=== PATIENT | female | born 1945 | race Caucasian/White ===

== ENCOUNTER → 2017-12-22 | Outpatient (CLI) | payer MEDICARE, OTHER ==
[~2017-12-22] MED LIST: AMLO10 PO; AMOCLA875 PO; ASCO500 PO; ASPI81CH PO; ATOR20 PO; Augmentin 875-1 EACH PO; CHOL10002; CLOP75 PO; CONEST.625 PO; GLUCHON PO; GLUCOS PO; HYDACE5 PO; HYDROCODON-ACE1 EAC3 PO; HYOMAX PO; LOSARTAN PO; MESA400ER PO; METO25ER PO; MONT10T PO; MULVITMIND PO; OMEP20ER PO; Percocet 5-3251 EACH PO; Qualaquin324 MG PO; VITAMIN D PO; XYZAL5 MG PO; [UNRECOGNIZED DRUG - OTHER] PO; [UNRECOGNIZED DRUG - OTHER] PO
[2017-12-22 18:42] LABS: Influenza A Negative (NEGATIVE); Influenza B Negative (NEGATIVE)
== END ==
LOC: LAB 18:10
PROVIDERS: Internal Medicine
DX: R50.9 Fever, unspecified (principal); R68.83 Chills (without fever); R52 Pain, unspecified
CPT/HCPCS: 87804

== ENCOUNTER 2018-01-13 01:55 | Emergency (ER) | payer MEDICARE, OTHER ==
[~2018-01-13] VITALS: Ht 157.5 cm; Wt 86.2 kg
[2018-01-13 02:32] LABS: BASOPHILS ABSOLUTE AUTO 0.06 K/mm3 (0.00-0.23); BASOPHILS PERCENT AUTO 1 % (0-2); EOSINOPHILS ABSOLUTE AUTO 0.48 K/mm3 (0.00-0.68); EOSINOPHILS PERCENT AUTO 7 % (0-6); Hematocrit 36.4 % (33.0-51.0); Hemoglobin 12.1 g/dL (11.5-16.0); IMMATURE GRAN ABSOLUTE AUTO 0.05 K/mm3 (0.00-0.10); IMMATURE GRAN PERCENT AUTO 1 % (0-1); LYMPHOCYTES ABSOLUTE AUTO 2.22 K/mm3 (0.84-5.20); LYMPHOCYTES PERCENT AUTO 31 % (21-46); MONOCYTES PERCENT AUTO 7 % (4-13); Mean Corpuscular HGB 32.3 pg (26.0-34.0); Mean Corpuscular HGB Conc 33.2 g/dL (31.5-36.5); Mean Corpuscular Volume 97 fL (80-100); Mean Platelet Volume 9.4 fL (9.1-12.4); NEUTROPHILS ABSOLUTE AUTO 3.84 K/mm3 (1.96-9.15); NEUTROPHILS PERCENT AUTO 54 % (41-73); Platelet Count 271 K/mm3 (150-400); RDW Coefficient Variation 12.8 % (11.7-14.2); RDW Standard Deviation 45.1 fL (35.1-46.3); Red Blood Cell Count 3.75 M/mm3 (3.80-5.20); White Blood Cell Count 7.15 K/mm3 (4.00-11.30)
[2018-01-13 02:47] LABS: Alanine Aminotransfer (ALT/SGP 23 U/L (12-78); Albumin, Blood 3.4 g/dL (3.4-5.0); Albumin/Globulin Ratio 0.8 (0.8-1.8); Alk Phos 66 U/L (50-136); Anion Gap 9 mmol/L (6-16); Aspartate Aminotrans (AST/SGOT 13 U/L (12-37); Bilirubin, Total 0.5 mg/dL (0.1-1.0); Blood Urea Nitrogen 22 mg/dL (8-24); Bun/Creatinine Ratio 25.4 (12.0-20.0); CO2, Blood 28 mmol/L (21-32); Calcium, Blood 8.9 mg/dL (8.5-10.1); Chloride, Blood 98 mmol/L (98-108); Creatinine, Blood 0.87 mg/dL (0.40-1.00); Glomerular Filtration Rate >60 (60-); Glucose, Blood 90 mg/dL (70-99); Potassium, Blood 3.2 mmol/L (3.5-5.5); Sodium, Blood 135 mmol/L (136-145); Total Protein, Blood 7.4 g/dL (6.4-8.2); Troponin I <0.015 ng/mL (0.000-0.040)
== END 2018-01-13 05:58 | disposition home or self-care (01) ==
LOC: ER 01:55
PROVIDERS: Emergency Medicine
DX: R07.9 Chest pain, unspecified (principal); Z88.2 Allergy status to sulfonamides; Z88.8 Allergy status to other drugs, medicaments and biological substances; Z88.1 Allergy status to other antibiotic agents; Z88.5 Allergy status to narcotic agent; Z79.899 Other long term (current) drug therapy; Z79.891 Long term (current) use of opiate analgesic; Z79.82 Long term (current) use of aspirin; Z87.891 Personal history of nicotine dependence
CPT/HCPCS: 36415; 71046; 80053; 83690; 83880; 84484; 85025; 93005; 93010; 99284

== ENCOUNTER → 2018-11-25 | Outpatient (CLI) | payer MEDICARE, OTHER | END | disposition home or self-care (01) | LOC: PLD 12:37 → LAB SHORT 12:37 | DX: D22.62 Melanocytic nevi of left upper limb, including shoulder (principal) | CPT/HCPCS: 88305 ==

== ENCOUNTER 2021-02-28 06:19 | Day surgery (SDC) | payer MEDICARE, OTHER ==
[~2021-02-28] VITALS: Ht 160 cm; Wt 86.5 kg
[~2021-02-28 06:19] MED LIST changes: +ALLER-EASE180 MG PO; +AMLO5 PO; +ASACOL HD800 MG PO; +BENADRYL25 MG PO; +Entocort EC 3 mg3 MG PO; +Glucosamine-Ch1 EACH PO; +HYDR1TAB94; +HYDR1TAB94 PO; +KRILL OIL 5001 EAC1 PO; +LO-DOSE ASPIRIN81 MG PO; +LOSARTAN-HCTZ1 EAC1 PO; +METO50ER PO; +Nitrostat0.4 MG SL; +ONE DAILY COMP1 EACH PO; +Omeprazole20 M1 PO; +POTA8 PO; +PRAV20 PO; +PRED10 PO; +VITAMIN B122500 MCG PO; +VITAMIN D32000 UNIT PO
[2021-02-28] MEDS ORDERED: PANT20 (07:04)
--- NOTE | 2021-02-28 07:07 | NUR ---
02/28/21 0707 Ignacio Tubbs 0641 TETRACAINE ONE DROP GIVEN. AT 0700 PLAGET PLACED. PT TOLERATING PLAGET WELL. CALL LIGHT WITHIN REACH
== END 2021-02-28 08:25 | disposition home or self-care (01) ==
LOC: ORSCSDS 06:19
PROVIDERS: Ophthalmology
PROC: 08RK3JZ Replacement of Left Lens with Synthetic Substitute, Percutaneous Approach (ICD-10-PCS; principal; 2021-02-28 07:30)
DX: H25.12 Age-related nuclear cataract, left eye (principal); I10 Essential (primary) hypertension; E78.5 Hyperlipidemia, unspecified; Z79.899 Other long term (current) drug therapy; Z79.82 Long term (current) use of aspirin; K21.9 Gastro-esophageal reflux disease without esophagitis
CPT/HCPCS: A9270; J2001; J2250; J3010; J3301; J7040; V2632

== ENCOUNTER 2021-08-23 08:23 | Day surgery (SDC) | payer MEDICARE, OTHER ==
[~2021-08-23] VITALS: Ht 160 cm; Wt 89.0 kg
[~2021-08-23 08:23] MED LIST changes: +CETI5 PO; +FAMO20 PO; +HYDROCODONE-AC1 EAC7 PO; +PANT20; +UBID100 PO
[2021-08-23] MEDS ORDERED: Vitamin B-121000 MCG PO (09:08)
[2021-08-23] MEDS ORDERED: ASACOL HD800 MG PO (09:11)
--- NOTE | 2021-08-23 09:49 | NUR ---
HERE TO DISCUSS PROCEDURE WITH PATIENT.
[2021-08-23] MEDS ORDERED: Plavix75 MG PO (10:13)
--- NOTE | 2021-08-23 10:15 | NUR ---
[facility] CALLED TO [facility]. IV REMOVED INTACT. 2X2, COB[place] ANDM MANUAL PRESSURE HELD. DRESSING FOR DISCHARGE.
--- NOTE | 2021-08-23 10:33 | NUR ---
DISCHARGED HOME. FRIEND DRIVING. AMBULATED TO PARKING LOT.
== END 2021-08-23 10:47 | disposition home or self-care (01) ==
LOC: MHTC 08:23
DX: I25.118 Atherosclerotic heart disease of native coronary artery with other forms of angina pectoris (principal); Z53.8 Procedure and treatment not carried out for other reasons; I10 Essential (primary) hypertension; E78.5 Hyperlipidemia, unspecified; J43.9 Emphysema, unspecified; Z95.5 Presence of coronary angioplasty implant and graft; Z87.891 Personal history of nicotine dependence; Z79.899 Other long term (current) drug therapy; Z79.82 Long term (current) use of aspirin; Z88.1 Allergy status to other antibiotic agents; Z88.2 Allergy status to sulfonamides; Z88.5 Allergy status to narcotic agent; Z88.8 Allergy status to other drugs, medicaments and biological substances
CPT/HCPCS: J1644; J2250; J3010; J7030; J7050

== ENCOUNTER 2021-09-19 08:40 | Inpatient (IN) | payer MEDICARE, OTHER ==
[~2021-09-19] VITALS: Ht 160 cm; Wt 88.0 kg
[~2021-09-19 08:40] MED LIST changes: +ASPIR 8181 M1 PO; -LO-DOSE ASPIRIN81 MG PO; -LOSARTAN-HCTZ1 EAC1 PO; +LOSARTAN-HCTZ1 EAC5 PO; +Plavix75 MG PO; +Vitamin B-121000 MCG PO
[2021-09-19] MEDS ORDERED: CLOPIDOGREL75 MG PO (09:21)
[2021-09-19] MEDS ORDERED: Isosorbide Mono30 MG PO (11:20)
--- NOTE | 2021-09-19 12:40 | NUR ---
TO RECOVERY ROOM VIA RECLINER. PT RIGHT HAND IS BLUE. TR BAND X2. 2 CC AIR REMOVED ON RADIAL ACCESS. HAND STILL BLUE.AT 1250 RADIAL TR BAND REMOVED, MANUAL PRESSURE HELD. . HAND IS PINKER.
--- NOTE | 2021-09-19 13:05 | NUR ---
MANUAL PRESSURE RELEASED RIGHT RADIAL. CLOTH DOT APPLIED. NO BLEEDING AT SITE.
--- NOTE | 2021-09-19 13:08 | NUR ---
ULNER TR BAND COMPLETELY DEFLATED.CLOTH DOT APPLIED. NO BLEEDING AT SITE
--- NOTE | 2021-09-19 13:20 | NUR ---
DR MCCANN CALLED TO ROOM. UPON TAKING OFF 2ND TR BAND PT R ARM BECAME PALE WHITE AND COLD TO THE TOUCH. NO RADIAL/ ULNAR PULSE FELT. SWELLING NOTED AT WRIST TO FOREARM/FIRM AND TIGHT. PT REPORTED NAUSEA AND LIGHTHEADEDNESS. PT PLACED IN [place] AND NS IV BOLUS STARTED. BP AT 77/[address] CORREIA ORDERS FOR STAT VASCULAR ULTRASOUND OF R ARM. WARM COMPRESS TO R ARM. CONTINUOS MONITORING IN PLACE. PT REPORTS "SEVERE PAIN AT UPPER FOREARM" "I HAVE NO FEELING IN MY HAND"
--- NOTE | 2021-09-19 13:40 | NUR ---
VASCULAR ULTRASOUND TO ROOM. DR TELLO OFFICE NOTIFIED OF "POSSIBLE COMPARTMENT SYNDROME". DR TELLO TO CALL DR MCCANN BACK. COLOR NOTED TO R ARM, REMAINS TENDER TO TOUCH. PULSE NOTED USING DOPPLER. PT REPORTS, "MY HAND IS STILL NUMB" VSS. CONTINUING TO MONITOR.
--- NOTE | 2021-09-19 13:55 | NUR ---
DR TELLO TO ROOM FOR EVAL. PT ARM ELEVATED AND ICE APPLIED. VSS. PT DAUGHTER IN ROOM. DISCUSSING PLAN OF CARE.
--- NOTE | 2021-09-19 14:06 | NUR ---
PT ASSISTED TO RESTROOM AND BACK, REPORTS NAUSEA. PER DR MCCANN ZOFRAN 4MG IV GIVEN. VSS. CONTINUING TO MONITOR R ARM.
--- NOTE | 2021-09-19 14:32 | NUR ---
PT GIVEN FENTANYL 50MCG IV AFTER 8/10 ARM PAIN. VSS. CALL LIGHT WITHIN REACH. [facility] WILL HERE SOON FOR TRANSFER TO SURGERY.
--- NOTE | 2021-09-19 15:00 | NUR ---
MAURI HERRERA, FROM [facility] HERE TO TAKE PATIENT FOR SURGERY. PT CONTINUES TO HAVE PAIN TO R ARM. PT MEDICATED WITH FENTANYL 50MCG IV. TOLERATES WELL. FULL REPORT TO JAVIER DOTSON TO ASSUME CARE. PT TO SURGERY VIA RASHMI.
--- NOTE | 2021-09-19 15:16 | NUR ---
REPORT GIVEN TO AMI THOMASON RN WITH ICU FOR CONTINUATION OF CARE AFTER SURGERY.
--- NOTE | 2021-09-19 18:04 | NUR ---
PATIENT ADMITTED FROM DAY SURGERY S/P FASCIOTOMY OF RUE. VSS; CMS INTACT TO RIGHT HAND, PULSE STRONG. PATIENT UP WITH ASSIT TO BR AND URINATED 200CC. PAIN RATED 5/10 AND TOLERABLE CURRENTLY. OREINTATED PATIENT TO ROOM, CALL LIGHT WITHIN REACH, INSTRUCTED PATIENT TO CALL FOR ASSISTANCE WHEN GETTING OOB
[2021-09-20 06:30] LABS: BASOPHILS ABSOLUTE AUTO 0.02 K/mm3 (0.00-0.23); BASOPHILS PERCENT AUTO 0 % (0-2); EOSINOPHILS PERCENT AUTO 0 % (0-6); Hematocrit 29.4 % (33.0-51.0); Hemoglobin 9.8 g/dL (11.5-16.0); IMMATURE GRAN ABSOLUTE AUTO 0.08 K/mm3 (0.00-0.10); IMMATURE GRAN PERCENT AUTO 1 % (0-1); LYMPHOCYTES ABSOLUTE AUTO 1.05 K/mm3 (0.84-5.20); LYMPHOCYTES PERCENT AUTO 11 % (21-46); MONOCYTES ABSOLUTE AUTO 0.47 K/mm3 (0.16-1.47); MONOCYTES PERCENT AUTO 5 % (4-13); Mean Corpuscular HGB 33.8 pg (26.0-34.0); Mean Corpuscular HGB Conc 33.3 g/dL (31.5-36.5); Mean Corpuscular Volume 101 fL (80-100); NEUTROPHILS ABSOLUTE AUTO 8.11 K/mm3 (1.96-9.15); NEUTROPHILS PERCENT AUTO 83 % (41-73); Platelet Count 258 K/mm3 (150-400); RDW Coefficient Variation 12.7 % (11.7-14.2); RDW Standard Deviation 47.3 fL (35.1-46.3); White Blood Cell Count 9.73 K/mm3 (4.00-11.30)
[2021-09-20 06:50] LABS: Bun/Creatinine Ratio 19.1 (12.0-20.0); Calcium, Blood 8.2 mg/dL (8.5-10.1); Potassium, Blood 4.4 mmol/L (3.5-5.5)
[2021-09-20] MEDS ORDERED: Percocet 5-3251 EACH PO (09:21)
--- NOTE | 2021-09-20 10:14 | NUR ---
DISCHARGE PT DISCHARGED HOME FROM UNIT AT APROX 1013. PT GIVEN WRITTEN AND VERBAL DISCHARGE INSTRUCTIONS AND VERBALIZED UNDERSTANDING OF THESE INSTRUCTIONS. IV X'S 2 REMOVED, PT TOLERATED WELL. DECLINES WC TO CAR, AMBULATED INDEPENDENTLY TO CAR WITH DAUGHTER. WRITTEN RX FOR PAIN MEDICATION GIVEN TO PT, COPY IN CHART.
== END 2021-09-20 10:18 | disposition home or self-care (01) | DRG 502 ==
LOC: MHTC 08:40 → ICUW 14:30 → SURS 17:35 → MHTC 17:36 → SURS 17:36
PROVIDERS: Internal Medicine Cardiovascular Disease; Orthopaedic Surgery; ADMIT Internal Medicine Cardiovascular Disease
PROC: B2111ZZ Fluoroscopy of Multiple Coronary Arteries using Low Osmolar Contrast (ICD-10-PCS; 2021-09-19)
PROC: B240ZZ3 Ultrasonography of Single Coronary Artery, Intravascular (ICD-10-PCS; 2021-09-19)
PROC: 0KN90ZZ Release Right Lower Arm and Wrist Muscle, Open Approach (ICD-10-PCS; principal; 2021-09-19 14:00)
DX: M79.A11 Nontraumatic compartment syndrome of right upper extremity (principal); I25.10 Atherosclerotic heart disease of native coronary artery without angina pectoris; I10 Essential (primary) hypertension; E78.00 Pure hypercholesterolemia, unspecified; M19.90 Unspecified osteoarthritis, unspecified site; I25.2 Old myocardial infarction; Z98.890 Other specified postprocedural states; Z98.42 Cataract extraction status, left eye; Z90.710 Acquired absence of both cervix and uterus; Z98.41 Cataract extraction status, right eye; Z87.891 Personal history of nicotine dependence; Z79.899 Other long term (current) drug therapy; Z79.02 Long term (current) use of antithrombotics/antiplatelets; Z88.2 Allergy status to sulfonamides; Z88.8 Allergy status to other drugs, medicaments and biological substances; Z88.1 Allergy status to other antibiotic agents; E78.5 Hyperlipidemia, unspecified; Z88.5 Allergy status to narcotic agent; Z79.82 Long term (current) use of aspirin
CPT/HCPCS: 36415; 76937; 80048; 85025; 85347; 92978; 93458; 93571; 93931; 99152; 99153; A9270; J0690; J1100; J1170; J1644; J2250; J2370; J2405; J2704; J3010; J3370; J7030; J7050; J7120; Q9967

== ENCOUNTER → 2022-03-27 | Outpatient (CLI) | payer MEDICARE, OTHER ==
[~2022-03-27] MED LIST changes: +CLOPIDOGREL75 MG PO; +Isosorbide Mono30 MG PO
== END | disposition home or self-care (01) ==
LOC: LAB SHORT 13:52 → LAB 13:52
DX: R30.0 Dysuria (principal)
CPT/HCPCS: 87077; 87086; 87186

== ENCOUNTER → 2022-12-18 | Outpatient (CLI) | payer MEDICARE, OTHER | END | disposition home or self-care (01) | LOC: LAB SHORT 08:18 → PLD 08:18 | DX: L60.2 Onychogryphosis (principal); B35.1 Tinea unguium | CPT/HCPCS: 88305; 88312 ==

== ENCOUNTER 2023-01-26 09:17 | Day surgery (SDC) | payer MEDICARE, OTHER ==
[~2023-01-26] VITALS: Ht 160 cm; Wt 83.6 kg
[2023-01-26] MEDS ORDERED: ROSU5 (09:47)
[2023-01-26] MEDS ORDERED: DESL5 (09:47)
== END 2023-01-26 11:53 | disposition home or self-care (01) ==
LOC: ORSCSDS 09:17
PROVIDERS: Internal Medicine Gastroenterology
PROC: 0DBN8ZX Excision of Sigmoid Colon, Via Natural or Artificial Opening Endoscopic, Diagnostic (ICD-10-PCS; principal; 2023-01-26 10:30)
PROC: 0DBK8ZX Excision of Ascending Colon, Via Natural or Artificial Opening Endoscopic, Diagnostic (ICD-10-PCS; principal; 2023-01-26 10:30)
PROC: 0DBM8ZX Excision of Descending Colon, Via Natural or Artificial Opening Endoscopic, Diagnostic (ICD-10-PCS; principal; 2023-01-26 10:30)
PROC: 0DBE8ZX Excision of Large Intestine, Via Natural or Artificial Opening Endoscopic, Diagnostic (ICD-10-PCS; principal; 2023-01-26 10:30)
PROC: 0DBP8ZX Excision of Rectum, Via Natural or Artificial Opening Endoscopic, Diagnostic (ICD-10-PCS; principal; 2023-01-26 10:30)
DX: K62.5 Hemorrhage of anus and rectum (principal); R19.4 Change in bowel habit; D12.2 Benign neoplasm of ascending colon; K63.5 Polyp of colon; K57.30 Diverticulosis of large intestine without perforation or abscess without bleeding; I10 Essential (primary) hypertension; J44.9 Chronic obstructive pulmonary disease, unspecified; Z87.891 Personal history of nicotine dependence; Z79.82 Long term (current) use of aspirin
CPT/HCPCS: 88305; J2704; J7120

== ENCOUNTER 2023-06-26 11:39 | Emergency (ER) | payer MEDICARE, OTHER ==
[~2023-06-26] VITALS: Ht 160 cm; Wt 83.5 kg
[~2023-06-26 11:39] MED LIST changes: +DESL5; +ROSU5
[2023-06-26 12:32] LABS: BASOPHILS ABSOLUTE AUTO 0.07 K/mm3 (0.00-0.23); BASOPHILS PERCENT AUTO 1 % (0-2); EOSINOPHILS ABSOLUTE AUTO 0.24 K/mm3 (0.00-0.68); EOSINOPHILS PERCENT AUTO 2 % (0-6); Hematocrit 34.9 % (33.0-51.0); Hemoglobin 11.6 g/dL (11.5-16.0); IMMATURE GRAN ABSOLUTE AUTO 0.11 K/mm3 (0.00-0.10); IMMATURE GRAN PERCENT AUTO 1 % (0-1); LYMPHOCYTES ABSOLUTE AUTO 1.73 K/mm3 (0.84-5.20); LYMPHOCYTES PERCENT AUTO 17 % (21-46); MONOCYTES ABSOLUTE AUTO 0.66 K/mm3 (0.16-1.47); MONOCYTES PERCENT AUTO 7 % (4-13); Mean Corpuscular HGB Conc 33.2 g/dL (31.5-36.5); Mean Corpuscular Volume 99 fL (80-100); Mean Platelet Volume 9.7 fL (9.1-12.4); NEUTROPHILS ABSOLUTE AUTO 7.15 K/mm3 (1.96-9.15); NEUTROPHILS PERCENT AUTO 72 % (41-73); Platelet Count 271 K/mm3 (150-400); RDW Coefficient Variation 12.9 % (11.7-14.2); RDW Standard Deviation 46.8 fL (35.1-46.3); Red Blood Cell Count 3.52 M/mm3 (3.80-5.20); White Blood Cell Count 9.96 K/mm3 (4.00-11.30)
[2023-06-26 12:44] LABS: Albumin, Blood 3.2 g/dL (3.4-5.0); Bilirubin, Total 0.7 mg/dL (0.1-1.0); Bun/Creatinine Ratio 18.7 (12.0-20.0); Calcium, Blood 8.6 mg/dL (8.5-10.1); Creatinine, Blood 0.91 mg/dL (0.40-1.00); Globulin, Blood 3.1 g/dL (2.2-4.0); Total Protein, Blood 6.3 g/dL (6.4-8.2)
[2023-06-26 12:55] LABS: Source, Urine Clean Catch
[2023-06-26 13:01] LABS: Appearance, Urine Clear (Clear); Bilirubin, Urine Neg (Neg); Blood, Urine Neg (Neg); Color, Urine Yellow (P-Yellow); Glucose Qualitative, Urine Neg (Neg); Ketones, Urine Neg (Neg); Leukocyte Esterase, Urine 1+ (Neg); Nitrite, Urine Neg (Neg); Protein, Urine Neg (Neg); Urobilinogen, Urine NORM (Normal); pH, Urine 6.5 (5.0-8.0)
[2023-06-26 13:10] LABS: Red Blood Cells, Urine 0-2 /hpf (0-2)
[2023-06-26 13:11] LABS: Bacteria Rare /hpf; Squamous Epithelial Cells Rare /hpf (Few)
[2023-06-26 15:18] VITALS: BP 166/71
== END 2023-06-26 15:51 | disposition home or self-care (01) ==
LOC: ER 11:39
PROVIDERS: Physician Assistant
DX: R10.31 Right lower quadrant pain (principal); I10 Essential (primary) hypertension; Z88.1 Allergy status to other antibiotic agents; Z88.2 Allergy status to sulfonamides; Z88.5 Allergy status to narcotic agent; Z88.8 Allergy status to other drugs, medicaments and biological substances; Z79.82 Long term (current) use of aspirin; Z79.899 Other long term (current) drug therapy
CPT/HCPCS: 74177; 80053; 81001; 83690; 85025; 87077; 87086; 99284-25; Q9967

== ENCOUNTER → 2023-07-24 | Outpatient (CLI) | payer MEDICARE, OTHER ==
[2023-07-24 13:53] LABS: Adenovirus F 40/41 Not Detected (NOT DETECT); Astrovirus Not Detected (NOT DETECT); Campylobacter Sp Not Detected (NOT DETECT); Cryptosporidium Not Detected (NOT DETECT); Cyclospora Cayetanensis Not Detected (NOT DETECT); E. Coli O157 Not Detected (NOT DETECT); Entamoeba Histolytica Not Detected (NOT DETECT); Enteroaggregative E. coli-EAEC Not Detected (NOT DETECT); Enteropathogenic E. coli-EPEC Not Detected (NOT DETECT); Enterotoxigenic E. coli-ETEC Not Detected (NOT DETECT); Giardia Lamblia Not Detected (NOT DETECT); Norovirus GI/GII Not Detected (NOT DETECT); Plesiomonas Shigelloides Not Detected (NOT DETECT); Rotavirus A Not Detected (NOT DETECT); Salmonella Sp Not Detected (NOT DETECT); Sapovirus Not Detected (NOT DETECT); Shiga Toxin-prod E. coli-STEC Not Detected (NOT DETECT); Shigella/Enteroin E. coli-EIEC Not Detected (NOT DETECT); Vibrio Cholerae Not Detected (NOT DETECT); Vibrio Sp Not Detected (NOT DETECT); Yersinia Enterocolitica Not Detected (NOT DETECT)
== END | disposition home or self-care (01) ==
LOC: LAB 11:12 → LAB SHORT 11:12
PROVIDERS: Family Medicine
DX: K52.9 Noninfective gastroenteritis and colitis, unspecified (principal)
CPT/HCPCS: 83993; 87507

== ENCOUNTER 2023-08-03 13:22 | Emergency (ER) | payer MEDICARE, OTHER ==
[~2023-08-03] VITALS: Ht 165.1 cm; Wt 81.7 kg
[2023-08-03 14:02] VITALS: BP 146/98
[2023-08-03 14:45] LABS: BASOPHILS ABSOLUTE AUTO 0.04 K/mm3 (0.00-0.23); BASOPHILS PERCENT AUTO 0 % (0-2); EOSINOPHILS PERCENT AUTO 1 % (0-6); Hematocrit 33.7 % (33.0-51.0); Hemoglobin 11.6 g/dL (11.5-16.0); IMMATURE GRAN ABSOLUTE AUTO 0.17 K/mm3 (0.00-0.10); IMMATURE GRAN PERCENT AUTO 2 % (0-1); LYMPHOCYTES ABSOLUTE AUTO 0.62 K/mm3 (0.84-5.20); LYMPHOCYTES PERCENT AUTO 6 % (21-46); MONOCYTES PERCENT AUTO 4 % (4-13); Mean Corpuscular HGB 33.3 pg (26.0-34.0); Mean Corpuscular HGB Conc 34.4 g/dL (31.5-36.5); Mean Corpuscular Volume 97 fL (80-100); Mean Platelet Volume 9.6 fL (9.1-12.4); NEUTROPHILS ABSOLUTE AUTO 9.15 K/mm3 (1.96-9.15); NEUTROPHILS PERCENT AUTO 87 % (41-73); Platelet Count 239 K/mm3 (150-400); RDW Coefficient Variation 13.1 % (11.7-14.2); Red Blood Cell Count 3.48 M/mm3 (3.80-5.20); White Blood Cell Count 10.48 K/mm3 (4.00-11.30)
[2023-08-03 14:52] LABS: Source, Urine Clean Catch
[2023-08-03 14:58] LABS: Appearance, Urine Cloudy (Clear); Blood, Urine 1+ (Neg); Color, Urine Yellow (P-Yellow); Glucose Qualitative, Urine Neg (Neg); Ketones, Urine 1+ (Neg); Leukocyte Esterase, Urine 3+ (Neg); Nitrite, Urine Neg (Neg); Protein, Urine 2+ (Neg); Specific Gravity, Urine 1.015 (1.003-1.022); Urobilinogen, Urine 1+ (Normal)
[2023-08-03 15:07] LABS: Albumin, Blood 2.9 g/dL (3.4-5.0); Albumin/Globulin Ratio 0.9 (0.8-1.8); Bilirubin, Total 1.5 mg/dL (0.1-1.0); Bun/Creatinine Ratio 14.9 (12.0-20.0); Calcium, Blood 8.7 mg/dL (8.5-10.1); Creatinine, Blood 1.01 mg/dL (0.40-1.00); Globulin, Blood 3.3 g/dL (2.2-4.0); Potassium, Blood 3.8 mmol/L (3.5-5.5); Total Protein, Blood 6.2 g/dL (6.4-8.2)
[2023-08-03 15:12] LABS: Bilirubin, Urine 1+ (Neg)
[2023-08-03 15:13] LABS: Bacteria Many /hpf; Squamous Epithelial Cells Mod /hpf (Few); White Blood Cells, Urine TNTC /hpf (0-5)
[2023-08-03] MEDS ORDERED: CEFD300 PO (18:11)
== END 2023-08-03 19:15 | disposition home or self-care (01) ==
LOC: ER 13:22
PROVIDERS: Physician Assistant
DX: N39.0 Urinary tract infection, site not specified (principal); I10 Essential (primary) hypertension; Z79.82 Long term (current) use of aspirin; Z79.899 Other long term (current) drug therapy; Z88.2 Allergy status to sulfonamides; Z88.5 Allergy status to narcotic agent; Z88.8 Allergy status to other drugs, medicaments and biological substances; Z87.891 Personal history of nicotine dependence
CPT/HCPCS: 80053; 81001; 83690; 85025; 87077; 87086; 87186; 96365; 99284-25; J0696

== ENCOUNTER → 2023-08-08 | Outpatient (CLI) | payer MEDICARE, OTHER ==
[~2023-08-08] MED LIST changes: +CEFD300 PO
[2023-08-08 14:52] LABS: Albumin, Blood 2.8 g/dL (3.4-5.0); Albumin/Globulin Ratio 0.8 (0.8-1.8); Bun/Creatinine Ratio 9.9 (12.0-20.0); Creatinine, Blood 1.01 mg/dL (0.40-1.00); Globulin, Blood 3.7 g/dL (2.2-4.0); Potassium, Blood 3.7 mmol/L (3.5-5.5); Total Protein, Blood 6.5 g/dL (6.4-8.2)
[2023-08-08 14:57] LABS: BASOPHILS ABSOLUTE AUTO 0.03 K/mm3 (0.00-0.23); BASOPHILS PERCENT AUTO 0 % (0-2); EOSINOPHILS ABSOLUTE AUTO 0.24 K/mm3 (0.00-0.68); EOSINOPHILS PERCENT AUTO 3 % (0-6); Hematocrit 33.1 % (33.0-51.0); Hemoglobin 11.1 g/dL (11.5-16.0); IMMATURE GRAN ABSOLUTE AUTO 0.15 K/mm3 (0.00-0.10); IMMATURE GRAN PERCENT AUTO 2 % (0-1); LYMPHOCYTES ABSOLUTE AUTO 0.71 K/mm3 (0.84-5.20); LYMPHOCYTES PERCENT AUTO 8 % (21-46); MONOCYTES PERCENT AUTO 6 % (4-13); Mean Corpuscular HGB 32.9 pg (26.0-34.0); Mean Corpuscular HGB Conc 33.5 g/dL (31.5-36.5); Mean Corpuscular Volume 98 fL (80-100); Mean Platelet Volume 9.7 fL (9.1-12.4); NEUTROPHILS ABSOLUTE AUTO 6.86 K/mm3 (1.96-9.15); NEUTROPHILS PERCENT AUTO 81 % (41-73); Platelet Count 301 K/mm3 (150-400); RDW Coefficient Variation 13.2 % (11.7-14.2); Red Blood Cell Count 3.37 M/mm3 (3.80-5.20); White Blood Cell Count 8.49 K/mm3 (4.00-11.30)
== END | disposition home or self-care (01) ==
LOC: LAB 13:15 → LAB SHORT 13:15
PROVIDERS: Physician Assistant
DX: N39.0 Urinary tract infection, site not specified (principal)
CPT/HCPCS: 80053; 85025

== ENCOUNTER → 2023-08-08 | Outpatient (CLI) | payer MEDICARE, OTHER | END | disposition home or self-care (01) | LOC: LAB SHORT 12:11 → LAB 12:11 | DX: N39.0 Urinary tract infection, site not specified (principal) | CPT/HCPCS: 87086 ==

== ENCOUNTER → 2023-09-29 | Outpatient (CLI) | payer MEDICARE, OTHER | END | disposition home or self-care (01) | LOC: LAB SHORT 10:58 → LAB 10:58 | DX: N39.0 Urinary tract infection, site not specified (principal) | CPT/HCPCS: 87086 ==

== ENCOUNTER → 2024-07-21 | Outpatient (CLI) | payer MEDICARE, OTHER | LOC: LAB 16:02 → LAB SHORT 16:02 | DX: N39.0 Urinary tract infection, site not specified (principal) | CPT/HCPCS: 87077; 87086; 87186 ==

== ENCOUNTER 2024-09-29 08:04 | Emergency (ER) | payer MEDICARE, OTHER ==
[~2024-09-29] VITALS: Ht 160 cm; Wt 76.7 kg
[2024-09-29 09:07] LABS: BASOPHILS ABSOLUTE AUTO 0.06 K/mm3 (0.00-0.23); BASOPHILS PERCENT AUTO 1 % (0-2); EOSINOPHILS ABSOLUTE AUTO 0.18 K/mm3 (0.00-0.68); EOSINOPHILS PERCENT AUTO 2 % (0-6); Hematocrit 38.4 % (33.0-51.0); Hemoglobin 12.8 g/dL (11.5-16.0); IMMATURE GRAN ABSOLUTE AUTO 0.11 K/mm3 (0.00-0.10); IMMATURE GRAN PERCENT AUTO 1 % (0-1); LYMPHOCYTES ABSOLUTE AUTO 2.39 K/mm3 (0.84-5.20); LYMPHOCYTES PERCENT AUTO 29 % (21-46); MONOCYTES ABSOLUTE AUTO 0.62 K/mm3 (0.16-1.47); MONOCYTES PERCENT AUTO 8 % (4-13); Mean Corpuscular HGB 33.3 pg (26.0-34.0); Mean Corpuscular HGB Conc 33.3 g/dL (31.5-36.5); Mean Corpuscular Volume 100 fL (80-100); Mean Platelet Volume 9.3 fL (9.1-12.4); NEUTROPHILS ABSOLUTE AUTO 4.84 K/mm3 (1.96-9.15); NEUTROPHILS PERCENT AUTO 59 % (41-73); Platelet Count 281 K/mm3 (150-400); RDW Coefficient Variation 13.5 % (11.7-14.2); RDW Standard Deviation 49.7 fL (35.1-46.3); Red Blood Cell Count 3.84 M/mm3 (3.80-5.20)
[2024-09-29 09:19] LABS: Albumin, Blood 3.5 g/dL (3.4-5.0); Albumin/Globulin Ratio 1.1 (0.8-1.8); Bilirubin, Total 1.2 mg/dL (0.1-1.0); Bun/Creatinine Ratio 25.7 (12.0-20.0); Calcium, Blood 9.1 mg/dL (8.5-10.1); Creatinine, Blood 1.09 mg/dL (0.40-1.00); Globulin, Blood 3.1 g/dL (2.2-4.0); Potassium, Blood 3.7 mmol/L (3.5-5.5); Total Protein, Blood 6.6 g/dL (6.4-8.2)
[2024-09-29 12:00] VITALS: BP 168/88
== END 2024-09-29 12:36 | disposition home or self-care (01) ==
LOC: ER 08:04
PROVIDERS: Physician Assistant
DX: R06.02 Shortness of breath (principal); R42 Dizziness and giddiness; I10 Essential (primary) hypertension; E78.5 Hyperlipidemia, unspecified; K21.9 Gastro-esophageal reflux disease without esophagitis; Z87.891 Personal history of nicotine dependence; Z79.899 Other long term (current) drug therapy; Z79.82 Long term (current) use of aspirin; Z88.1 Allergy status to other antibiotic agents; Z88.2 Allergy status to sulfonamides; Z88.5 Allergy status to narcotic agent; Z88.8 Allergy status to other drugs, medicaments and biological substances
CPT/HCPCS: 71046; 80053; 83880; 84484; 85025; 93005; 93010; 99285-25

== ENCOUNTER → 2024-11-08 | Outpatient (CLI) | payer MEDICARE, OTHER ==
[2024-11-08 15:01] LABS: C DIFFICILE DNA NEGATIVE (Negative)
== END | disposition home or self-care (01) ==
LOC: LAB 12:04 → LAB SHORT 12:04
PROVIDERS: Student in an Organized Health Care Education/Training Program
DX: R19.7 Diarrhea, unspecified (principal)
CPT/HCPCS: 87493

== ENCOUNTER → 2024-11-14 | Outpatient (CLI) | payer MEDICARE, OTHER ==
[~2024-11-14] MED LIST changes: +CEPH500 PO
== END ==
LOC: LAB 16:39 → LAB SHORT 16:39
DX: N39.0 Urinary tract infection, site not specified (principal)
CPT/HCPCS: 87086

== ENCOUNTER 2024-11-28 06:04 | Day surgery (SDC) | payer MEDICARE, OTHER ==
[2024-11-28] VITALS (7 sets, daily range): BP systolic 139–177; BP diastolic 57–119
[~2024-11-28] VITALS: Ht 160 cm; Wt 78.2 kg
[~2024-11-28 06:04] MED LIST changes: +Crestor40 MG PO; -Omeprazole20 M1 PO; -ROSU5
[2024-11-28] MEDS ORDERED: Heparin Sodium 1000 Units/ML 10ML MDV ONE (06:28)
[2024-11-28] MEDS ORDERED: Nitroglycerin 2 MG/20 ML BTL ONE (06:28)
[2024-11-28] MEDS ORDERED: Verapamil HCL 2.5 MG/ML 2ML Injection ONE (06:28)
[2024-11-28] MEDS ORDERED: NS 1,000 ML IV ONE ×2 (06:28→06:50)
[2024-11-28] MEDS ORDERED: NS 250 ML IV ONE (06:28)
[2024-11-28] MEDS ORDERED: FentaNYL Citrate 50 MCG/ML 2 ML Injection ONE (06:50)
[2024-11-28] MEDS ORDERED: Midazolam HCl 1MG / ML 2ML Vial ONE (06:50)
[2024-11-28] MEDS ORDERED: Aspirin 81 MG Chew ONE (07:21)
[2024-11-28] MEDS ORDERED: HydrALAZINE HCl 20 MG / ML 1ML Vial ONE (08:16)
[2024-11-28] MEDS ORDERED: FURO40 PO (09:52)
--- NOTE | 2024-11-28 11:27 | NUR ---
PT VERBALIZES UNDERSTANDING WRITTEN AND VERBAL INSTRUCTIONS. DENIES QUESTIONS OR CONCERNS. PT R FEMORAL SITE REMAIN C/D/I. NO BLEEDING OR HEMATOMA NOTED. PT R BRACHIAL VEIN SITE REMAINS C/D/I. CALL LIGHT WITHIN REACH.
--- NOTE | 2024-11-28 12:15 | NUR ---
PT AMBULATES TO RESTROOM AND BACK WITHOUT DIFF. PT DRESSES SELF WITH MINIMAL ASSISTANCE. PT IV DC'D. CATH INTACT. PRESSURE DSG APPLIED. PT FEMORAL SITE REMAINS C/D/I. R BRACHIAL SITE REMAINS INTACT. VSS. NADN. PT DC TO HOME VIA S/O BY BARBER.
== END 2024-11-28 12:20 | disposition home or self-care (01) ==
LOC: MHTC 06:04
DX: I25.118 Atherosclerotic heart disease of native coronary artery with other forms of angina pectoris (principal); I11.0 Hypertensive heart disease with heart failure; I50.9 Heart failure, unspecified; E78.5 Hyperlipidemia, unspecified; J43.9 Emphysema, unspecified; Z79.82 Long term (current) use of aspirin; Z79.899 Other long term (current) drug therapy; Z88.8 Allergy status to other drugs, medicaments and biological substances; Z88.2 Allergy status to sulfonamides; Z87.891 Personal history of nicotine dependence
CPT/HCPCS: 76937; 85347; 93460; 93571; 99152; 99153; A9270; C1760; C1769; C1887; C1894; J0360; J1644; J2250; J3010; J7030; J7050; Q9967

== ENCOUNTER → 2025-03-10 | Outpatient (CLI) | payer MEDICARE, OTHER ==
[~2025-03-10] MED LIST changes: +FURO40 PO
== END ==
LOC: LAB 15:30 → LAB SHORT 15:30
DX: N39.0 Urinary tract infection, site not specified (principal)
CPT/HCPCS: 87077; 87086; 87186

== ENCOUNTER → 2025-06-05 | Outpatient (CLI) | payer MEDICARE, OTHER | END | disposition home or self-care (01) | LOC: LAB SHORT 16:40 → LAB 16:40 | DX: N39.0 Urinary tract infection, site not specified (principal) | CPT/HCPCS: 87077; 87086; 87186 ==

== ENCOUNTER → 2025-06-13 | Outpatient (CLI) | payer MEDICARE, OTHER | END | disposition home or self-care (01) | LOC: LAB SHORT 16:22 → LAB 16:22 | DX: N39.0 Urinary tract infection, site not specified (principal) | CPT/HCPCS: 87077; 87086; 87186 ==

== ENCOUNTER → 2025-07-10 | Outpatient (CLI) | payer MEDICARE, OTHER ==
[2025-07-10 15:11] LABS: Stool Occult Bld Immuno 1 Negative (NEGATIVE)
== END | disposition home or self-care (01) ==
LOC: LAB 07:50 → LAB SHORT 07:50
PROVIDERS: Family Medicine
DX: R71.0 Precipitous drop in hematocrit (principal)
CPT/HCPCS: G0328

== ENCOUNTER → 2025-08-07 | Outpatient (CLI) | payer MEDICARE, OTHER | LOC: LAB 16:07 → LAB SHORT 16:07 | DX: N39.0 Urinary tract infection, site not specified (principal) | CPT/HCPCS: 87086 ==

== ENCOUNTER → 2025-10-02 | Outpatient (CLI) | payer MEDICARE, OTHER | LOC: LAB 13:32 → LAB SHORT 13:32 → LAB FUT 11-04 13:00 | DX: N39.0 Urinary tract infection, site not specified (principal) | CPT/HCPCS: 87077; 87086; 87186 ==

== ENCOUNTER → 2025-10-17 | Outpatient (CLI) | payer MEDICARE, OTHER | END | disposition home or self-care (01) | LOC: LAB SHORT 10:45 → LAB 10:45 | DX: N39.0 Urinary tract infection, site not specified (principal) | CPT/HCPCS: 87086 ==